=== PATIENT | female | born 1995 | race American Indian/Alaskan Native ===

== ENCOUNTER 2019-12-11 00:34 | Outpatient (CLI) | payer MEDICAID ==
[2019-12-11 01:01] VITALS: BP 114/67
[2019-12-11] MEDS ORDERED: LACTATED RINGERS 1,000 ML IV ONE ×2 (01:06→01:34)
[2019-12-11] MEDS ORDERED: TERBUTALINE 1 MG/1 ML INJ IVP ONE (01:32)
[2019-12-11] MEDS ORDERED: TERBUTALINE 1 MG/1 ML INJ ONE (01:32)
[2019-12-11 01:37] LABS: Bilirubin,Urine NEG (Negative); Blood,Urine NEG (Negative); Color,Urine Yellow (Yellow); Mucus,Urine 1+ /HPF; Protein,Urine <15 mg/dL mg/dL (Negative); RBC,Urine < 1.0 /HPF (0.0-6.0)
== END 2019-12-11 03:03 | disposition home or self-care (01) ==
LOC: TRG 00:34 → APU 00:35 → TRG 03:03
PROVIDERS: ATTEND Obstetrics & Gynecology
DX: O26.893 Other specified pregnancy related conditions, third trimester (principal); R10.30 Lower abdominal pain, unspecified; M54.9 Dorsalgia, unspecified; O47.03 False labor before 37 completed weeks of gestation, third trimester; Z3A.34 34 weeks gestation of pregnancy; Z87.891 Personal history of nicotine dependence
CPT/HCPCS: 59025; 81001; 96361; 96372; 96374; J3105; J7120; 96360

== ENCOUNTER 2020-01-13 20:57 | Inpatient (IN) | payer MEDICAID ==
[2020-01-13] MEDS ORDERED: METOCLOPRAMIDE 10 MG/2 ML INJ IV ONE (22:09)
[2020-01-13] MEDS ORDERED: FAMOTIDINE 20 MG/2 ML INJ IV ONE (22:09)
[2020-01-13] MEDS ORDERED: BICITRA ORAL LIQD 30ML PO ONE (22:09)
[2020-01-13] MEDS ORDERED: LACTATED RINGERS 1,000 ML IV SCH (22:15)
[2020-01-13 22:54] LABS: Basophils % (Auto) 0.4 % (0.0-1.8); Eosinophils % (Auto) 0.3 % (0.0-4.3); Hematocrit 32.3 % (30.3-42.9); Hemoglobin 10.4 gm/dl (10.1-14.3); Lymphocytes # (Auto) 2.5 K/mm3 (1.2-5.4); Lymphocytes % (Auto) 20.9 % (13.4-35.0); Mean Corpuscular HGB Conc 32 % (30-34); Mean Corpuscular Volume 79 fl (79-97); Monocytes # (Auto) 0.9 K/mm3 (0.0-0.8); Monocytes % (Auto) 7.7 % (0.0-7.3); Red Blood Count 4.11 M/mm3 (3.65-5.03); Red Cell Distribution Width 15.2 % (13.2-15.2)
[2020-01-13 22:56] LABS: Platelet Count 150 K/mm3 (140-440)
[2020-01-13] MEDS ORDERED: OXYTOCIN DRIP 30 UNITS/500 ML BAG IV SCH (23:00)
[2020-01-13] MEDS ORDERED: ceFAZolin/Water 2 GM/20 ML 2 GM/20 ML SYRINGE IV NR (23:00)
--- NOTE | 2020-01-13 23:05 | History and Physical Report ---
History of Present Illness Date of examination: 01/13/20 History of present illness: 24-year-old -0-3-2 is at 38 weeks and 6 days today with a history of 2 prior C-sections. Patient was here earlier today with contractions and was a fingertip dilated and contractions subsided. Patient went home but this evening contractions got much worse and and she is now 1 cm dilated. No leakage of fluid. Good movement. No available but she notes an uncomplicated . Contractions are also stronger and more regular now. 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 History: chlamydia Social history: smoking (former tobacco use) - Obstetrical History Expected Date of Delivery: 01/21/20 Actual Gestation: 38 Week(s) 6 Day(s) : 6 Hx # Term Pregnancies: 2 Spontaneous Abortions: 3 Number of Living Children: 2 Medications and Allergies Allergies Allergy/AdvReac Type Severity Reaction Status Date / Time No Known Allergies Allergy Unverified 12/11/15 20:19 Home Medications Medication Instructions Recorded Confirmed Last Taken Type Docusate Sodium [Colace] 100 mg PO BID PRN #60 capsule 12/22/15 Unknown Rx Ferrous Sulfate [Feosol 325 MG tab] 325 mg PO BID #60 tablet 12/22/15 Unknown Rx Ibuprofen [Motrin 800 MG tab] 800 mg PO Q8HR PRN #30 tablet 01/13/20 Unknown Rx oxyCODONE /ACETAMINOPHEN [Percocet 1 tab PO Q4HR #30 tab 01/13/20 Unknown Rx 5/325 mg] Active Meds: Active Medications Lactated Ringer's (Lactated Ringers) 1,000 mls @ 2,250 mls/hr IV PREOP DIANA Stop: 01/14/20 22:42 Oxytocin/Sodium Chloride (Pitocin/Ns 30 Unit/500ml) 30 units in 500 mls @ 0 mls/hr IV TITR DIANA; Protocol Cefazolin Sodium (Ancef/Sterile Water 2 Gm/20 Ml) 2 gm in 20 mls @ 80 mls/hr IV PREOP NR; Protocol Stop: 01/14/20 23:45 Review of Systems All systems: negative (except HPI) - Vital Signs Vital signs: Vital Signs Temp Pulse Resp BP Pulse Ox 98.8 F 108 H 18 113/72 98 01/13/20 21:10 01/13/20 21:10 01/13/20 21:10 01/13/20 21:10 01/13/20 21:10 Temp Pulse Resp BP Pulse Ox 98.8 F 98 H 18 113/72 100 01/13/20 21:10 01/13/20 22:59 01/13/20 21:10 01/13/20 21:13 01/13/20 22:59 - Physical Exam Abdomen: Positive: normal appearance. Negative: tenderness - Obstetrical FHR: auscultation normal, category 1 Uterine Contraction Frequency (min): q 2 Uterine Contraction Pattern: Regular Results Result Diagrams: 01/13/20 22:43 Abnormal lab results 01/13/20 Range/Units 22:43 WBC 11.9 H (4.5-11.0) K/mm3 MCH 25 L (28-32) pg Sawyer % (Auto) 7.7 H (0.0-7.3) % Sawyer # (Auto) 0.9 H (0.0-0.8) K/mm3 Seg Neutrophils % 70.7 H (40.0-70.0) % Seg Neutrophils # 8.4 H (1.8-7.7) K/mm3 All other labs normal. Assessment and Plan - Patient Problems (1) Previous delivery affecting Current Visit: No Status: Acute Plan to address problem: Patient is in early labor and is about to be 39 weeks. As result patient agrees to proceed with her repeat low-transverse today. Patient fully consented for the surgery. Risks, benefits, and alternatives were all discussed with the patient including risk of bleeding, infection, and potential for injury. Patient understands and accepts these risks. Patient agrees to proceed with surgery. All questions were answered.
[2020-01-13] MEDS ORDERED: KETOROLAC 30 MG/1 ML INJ ONE (23:30)
[2020-01-13] MEDS ORDERED: BUPIVACAINE /DEX-WATER 0.75% (2 ML) AMPULE INFILTRATI ONE (23:40)
[2020-01-13] MEDS ORDERED: ONDANSETRON 4 MG/2 ML INJ ONE (23:40)
[2020-01-13] MEDS ORDERED: ONDANSETRON 4 MG/2 ML INJ IV ONE (23:45)
[2020-01-13] MEDS ORDERED: ceFAZolin/STERILE WATER 2 GM/20 ML SYRINGE IV ONE (23:50)
--- NOTE | 2020-01-14 00:01 | Anesthesia Day of Surgery ---
Anesthesia Day of Surgery - Day of Surgery Patient Examined: Yes Patient H&P Reviewed: Yes Patient is NPO: Yes (1100) Beta Blockers: No Cardiac Clearance: No Pulmonary Clearance: No Gilmer's Test: N/A
--- NOTE | 2020-01-14 00:02 | Anesthesia Consultation ---
Anesthesia Consult and Med Hx Date of service: 01/14/20 - Airway Anesthetic Teeth Evaluation: Good ROM Head & Neck: Adequate Mental/Hyoid Distance: Adequate Mallampati Class: Class III Intubation Access Assessment: Probably Good - Pulmonary Exam CTA: Yes - Cardiac Exam Cardiac Exam: RRR - Pre-Operative Health Status ASA Pre-Surgery Classification: ASA2 Proposed Anesthetic Plan: Spinal Nerve Block: tap - Pulmonary Hx Smoking: No Hx Asthma: No COPD: No Hx Pneumonia: No Hx Sleep Apnea: No - Cardiovascular System Hx Hypertension: No Hx Heart Attack/AMI: No Hx Angina: No - Central Nervous System Hx Seizures: No Hx Psychiatric Problems: No - Gastrointestinal Hx Gastroesophageal Reflux Disease: No - Endocrine Hx Renal Disease: No Hx End Stage Renal Disease: No Hx Insulin Dependent Diabetes: No Hx Non-Insulin Dependent Diabetes: No Hx Hypothyroidism: No Hx Hyperthyroidism: No - Hematic Hx Anemia: No Hx Sickle Cell Disease: No - Other Systems Hx Alcohol Use: No Hx Obesity: Yes
[2020-01-14] MEDS ORDERED: ONDANSETRON 4 MG/2 ML INJ IV PRN ×2 (00:03→01:23)
[2020-01-14] MEDS ORDERED: diphenhydrAMINE 50 MG/ML VIAL IV PRN (00:03)
[2020-01-14] MEDS ORDERED: NALOXONE 0.4 MG/1 ML INJ IV PRN ×2 (00:03→01:22)
[2020-01-14] MEDS ORDERED: NalbUPHINE 10 MG/1 ML INJ IV PRN (00:03)
[2020-01-14] MEDS ORDERED: PROMETHAZINE 25 MG RECT SUPP PR PRN (00:03)
[2020-01-14] MEDS ORDERED: PROMETHAZINE 25 MG TAB PO PRN (00:03)
--- NOTE | 2020-01-14 00:03 | Progress Note ---
Spinal Anesthesia Block - Spinal Anesthesia Block Start Time: 23:32 Stop Time: 23:55 Performed by:: GREGG DAVISON ([facility]) Procedure: Spinal anesthesia block is being performed for [C/S]. H&P, labs have been reviewed. Patient's questions and concerns have been answered. Informed consent has been performed. Timeout has was performed. Patient in sitting position on side of bed. Sterile prep and drape was performed. 3 mL 1% l idocaine skin wheal at L [3]-L [4]. Needle introducer advanced. 25-gauge spinal needle advanced, [+] CSF [-] blood. [Marcaine 12mg and Precedex 5mcg] Spinal dose was given. All needles removed. Patient tolerated procedure well.
[2020-01-14] MEDS ORDERED: PHENYLEPHRINE/NS 1,000 MCG/10 ML SYRINGE (OR USE) IV ONE (00:08)
[2020-01-14] MEDS ORDERED: KETOROLAC 30 MG/1 ML INJ IV ONE (00:50)
--- NOTE | 2020-01-14 01:08 | Procedure Note ---
OB Delivery Note - Delivery Date of Delivery: 01/14/20 Surgeon: CARL HENDRICKS Estimated blood loss: other (800cc) - Section Preop diagnosis: repeat , other (Early labor) Postop diagnosis: same section procedure: section, repeat low transverse Disposition: PACU Complications: none Narrative: Indication: 24-year-old -0-3-2 at 39 weeks with a history of 2 prior C- sections was in early labor. As result patient taken for repeat low-transverse Findings: Normal uterus, tubes and ovaries except for moderate scarring of the bladder to the anterior wall of the uterus. Also finding on the anterior wall of the uterus suggestive of possible small abruption.. Clear fluid. Loose nuchal cord x1. Moderate subcutaneous tissue scarring. Procedure: Patient taken to the operating room and prepped and draped in the usual fashion. Pfannenstiel skin incision was made and carried down to the underlying fascia. Fascia was incised and the incision was extended bilaterally. Rectus fascia dissected off the rectus muscle both superiorly and inferiorly. Peritoneum identified tented up and entered. Peritoneal incision extended superiorly and inferiorly with good visualization of the bladder. Bladder blade was placed. Bladder flap was created. Uterine incision was made and the incision was extended bilaterally. Small part of the rectus muscle on the right side was cut to assist with delivery. The baby was delivered from in the typical vertex fashion. Baby bulb suctioned at the incision site and again after delivery. Cord was delayed clamped and cut and handed off to waiting team. The placenta was delivered spontaneously. The uterus was exteriorized and cleared of all clots and debris. Uterine incision closed with 0 Vicryl in a running locked fashion followed by a second imbricating layer of 0 Vicryl. Good hemostasis was noted. Her urine was clear. Uterus tubes and ovaries were returned to the abdominal cavity. Gutters were cleared of all clots and debris and the pelvis was well irrigated. Good hemostasis noted. Interceed placed over the uterine incision and over the lower uterine segment in the midline. The rectus muscle that was cut on the right side was reapproximated with 2-0 Vicryl. Attention was turned to the rectus fascia which was reapproximated with 0 Vicryl in a running fashion. Subcutaneous tissue was irrigated and reapproximated with 2-0 Vicryl in a running fashion. Skin was closed with 4-0 Vicryl in a subcuticular fashion followed by Dermabond. The procedure was concluded at this point and the patient tolerated the procedure well. All instrument and lap counts were correct. - A at 1 minute: 8 at 5 minutes: 9 Gender: Female
[2020-01-14] MEDS ORDERED: LANOLIN/ZINC/DIMETHICONE (LANSINOH) 7 GM TP PRN (01:22)
[2020-01-14] MEDS ORDERED: KETOROLAC 30 MG/1 ML INJ IV PRN (01:22)
[2020-01-14] MEDS ORDERED: WITCH HAZEL/ GLYCERIN PAD TP PRN (01:22)
[2020-01-14] MEDS ORDERED: SENNOSIDES 8.6 MG TAB PO PRN (01:23)
[2020-01-14] MEDS ORDERED: SIMETHICONE 80 MG CHEW TAB PO PRN (01:23)
--- NOTE | 2020-01-14 01:23 | Progress Note ---
Regional Anesthesia Block - Regional Anesthesia Block Start Time: 01:18 Stop Time: :23 Performed By:: GREGG DAVISON ([facility]) Procedure: Patient consented for TAP block for post surgical pain management. Patient identified, monitors placed, and time out performed. Mid axillary TAP identified bilaterally via ultrasound. Skin prepped bilaterally with [chlorhexidine] and [20g stimuplex] needle advanced to the TAP. 30ml [Marcaine 0.25% with 25mcg Precedex and Decadron 4mg] injected under ultrasound guidance on the [left] side. 30ml [Marcaine 0.25% with 25mcg Precedex and Decadron 4mg] injected under ultrasound guidance on the [right] side.
[2020-01-14] MEDS ORDERED: OXYTOCIN DRIP 30 UNITS/500 ML BAG IV SCH (02:00)
[2020-01-14] MEDS: HYDROmorphone 1 MG/1 ML INJ IV PRN ×2 (08:12→16:34)
--- NOTE | 2020-01-14 10:17 | Post Anesthesia Evaluation ---
- Post Anesthesia Evaluation Patient Participated: Yes Airway Patent: Yes Stable Respiratory Function: Yes Nausea/Vomiting: No Temp > 96.8F: Yes Pain Manageable: Yes Adequeate Hydration: Yes Anesthesia Complications: No Block Receding Appropriately: Yes Patient on Ventilator: No
[2020-01-14] MEDS: oxyCODONE /ACETAMINOPHEN 5-325MG TAB PO PRN ×2 (11:25→19:06)
[2020-01-14] MEDS: MAGNESIUM HYDROXIDE (MOM) ORAL LIQD UDC PO PRN (11:30)
[2020-01-14 15:42] LABS: Hepatitis C Virus Antibody Non-Reactive (NonReactive)
[2020-01-14] MEDS: IBUPROFEN 800 MG TAB PO PRN (23:50)
[2020-01-15] MEDS: oxyCODONE /ACETAMINOPHEN 5-325MG TAB PO PRN ×3 (04:03→19:50)
--- NOTE | 2020-01-15 11:30 | Progress Note ---
Assessment and Plan A: POD #1 Asymptomatic Anemia P: Follow Routine PsotOp Orders FeSO4 Po 1XD Subjective - Subjective Date of service: 01/15/20 Patient reports: appetite normal, voiding normally, pain well controlled, flatus, ambulating normally, other (Denies HAs, visual changes, N&V, and dizziness) [place]: doing well, bottle feeding Objective - Vital Signs Latest vital signs: Vital Signs Temp Pulse Resp BP BP Pulse Ox 01/15/20 08:30 97.8 F 87 20 111/62 01/15/20 00:24 98.3 F 92 H 20 117/76 98 01/14/20 19:56 98.4 F 103 H 24 126/74 97 01/14/20 15:59 97.5 F L 80 20 116/78 97 01/14/20 12:02 97.9 F 89 24 116/68 98 Intake and Output 01/14/20 01/15/20 01/15/20 22:59 06:59 14:59 Intake Total 360 480 360 Output Total 850 400 Balance -490 80 360 Intake: Oral 120 360 Intake, Free Water 240 480 Output: Urine 850 400 Void 850 400 Other: Total, Intake Amount 120 360 Total, Output Amount 300 400 # Voids Void 1 - Exam Breasts: Present: normal Cardiovascular: Present: Regular rate Lungs: Present: Clear to auscultation, Normal air movement Abdomen: Present: normal appearance, soft, normal bowel sounds Uterus: Present: normal, firm, fundal height below umbilicus Extremities: Present: normal Incision: Present: normal, dry, dressed
[2020-01-15 11:33] LABS: Hemoglobin 8.1 gm/dl (10.1-14.3)
[2020-01-15] MEDS: IBUPROFEN 800 MG TAB PO PRN ×2 (14:10→23:37)
[2020-01-15] MEDS: FERROUS SULFATE 325 MG TAB PO SCH (17:13)
[2020-01-15] MEDS: MAGNESIUM HYDROXIDE (MOM) ORAL LIQD UDC PO PRN (19:50)
[2020-01-16] MEDS: oxyCODONE /ACETAMINOPHEN 5-325MG TAB PO PRN (04:25)
--- NOTE | 2020-01-16 10:08 | Discharge Summary ---
Providers - Providers Date of Admission: 01/13/20 23:28 Date of discharge: 01/16/20 Attending physician: CARL HENDRICKS Primary care physician: CARL HENDRICKS Hospitalization Reason for admission: section Delivery: Procedure: repeat low transverse Episiotomy: none Laceration: none Incision: dry, intact (no drainage or bleeding noted) Other procedures: none complications: none Discharge diagnosis: IUP at term delivered, other (anemia) baby: female Hospital course: See admission H & P; OB operative summary and PP progress notes Condition at discharge: Good Disposition: DC-01 TO HOME OR SELFCARE - Discharge Diagnoses (1) Status post repeat low transverse section Status: Acute Comment: rto 1 week for visit (2) Anemia Status: Acute Qualifiers: Anemia type: other cause Other causes of anemia: acute posthemorrhagic Qualified Code(s): D62 - Acute posthemorrhagic anemia Comment: Asymptomatic Plan - Discharge Medications Prescriptions: Ibuprofen [Motrin 800 MG tab] 800 mg PO Q8HR PRN #30 tablet PRN Reason: Pain oxyCODONE /ACETAMINOPHEN [Percocet 5/325 mg] 1 tab PO Q4HR #30 tab - Provider Discharge Summary Activity: routine, no sex for 6 weeks, no heavy lifting 4 weeks, no strenuous exercise Diet: other (Iron rich diet) Instructions: routine Additional instructions: [] Smoking cessation referral if applicable(refer to patient education folder for contact #) [] Refer to [facility] Booklet Call your doctor immediately for: * Fever > 100.5 * Heavy vaginal bleeding ( >1 pad per hour) * Severe persistent headache * Shortness of breath * Reddened, hot, painful area to leg or breast * Drainage or odor from incision. * Keep incision clean and dry at all times and follow doctor's instructions regarding bathing/showering - Follow up plan Follow up: CARL HENDRICKS MD [Primary Care Provider] - 14 Days
[2020-01-16] MEDS: FERROUS SULFATE 325 MG TAB PO SCH (12:29)
[2020-01-16] MEDS: IBUPROFEN 800 MG TAB PO PRN (12:30)
[2020-01-16 15:48] VITALS: BP 119/81
== END 2020-01-16 16:10 | disposition home or self-care (01) | DRG 765 ==
LOC: TRG 20:57 → APU 21:00 → TRG 23:28 → LD 01-14 00:37 → OB 01-14 02:35
PROVIDERS: ADMIT Obstetrics & Gynecology; ATTEND Obstetrics & Gynecology
PROC: 10D00Z1 Extraction of Products of Conception, Low, Open Approach (ICD-10-PCS; principal; 2020-01-14)
DX: O34.211 Maternal care for low transverse scar from previous cesarean delivery (principal); D62 Acute posthemorrhagic anemia; Z3A.38 38 weeks gestation of pregnancy; Z37.0 Single live birth; Z20.828 Contact with and (suspected) exposure to other viral communicable diseases; Z87.891 Personal history of nicotine dependence; O99.214 Obesity complicating childbirth; E66.9 Obesity, unspecified; O69.81X0 Labor and delivery complicated by cord around neck, without compression, not applicable or unspecified; O90.81 Anemia of the puerperium
CPT/HCPCS: 36415; 85014; 85018; 85025; 86592; 86706; 86762; 86803; 86850; 86900; 86901; 87806; G0378; A6250; C1765; J0690; J1170; J1885; J2370; J2405; J2765; J3490; J7120; U0003